=== PATIENT | female | born 1990 | race Caucasian/White ===

== ENCOUNTER 2021-12-23 16:37 | Emergency (ER) | payer OTHER ==
[~2021-12-23 16:37] MED LIST: ZANTAC150 MG PO
[2021-12-23 17:32] LABS: HEMOGLOBIN 13.8 gm/dl (12.3-15.3); RED BLOOD COUNT 4.34 M/UL (4.00-5.10); WHITE BLOOD COUNT 6.4 K/UL (4.5-11.0)
[2021-12-23 20:35] LABS: BUN/CREATININE RATIO 13 (0-10)
== END 2021-12-23 21:04 | disposition home or self-care (01) ==
LOC: ER1 16:37
PROVIDERS: Physician Assistant Medical
DX: R07.89 Other chest pain (principal); R00.2 Palpitations; R00.0 Tachycardia, unspecified; Z87.442 Personal history of urinary calculi
CPT/HCPCS: 71045; 80053; 82550; 82553; 84439; 84443; 84484; 85025; 85379; 93005; 99285